=== PATIENT | female | born 1960 | race Caucasian/White ===

== ENCOUNTER 2017-08-27 13:33 | Emergency (ER) | payer BC ==
--- NOTE | 2017-08-27 13:40 | ER Document Report ---
HPI - HPI Patient complains to provider of: Cough and congestion Onset: Other - Over 3 weeks Pain Level: 2 Context: 57-year-old female woke her is complaining of cough for over 3 weeks it feels like the mucus gets stuck in her throat. The past 3 days she had increased sinus congestion and difficulty at night with her CPAP machine because of the nasal congestion. She has been borrowing a albuterol metered-dose her of her friend. She is a type II diabetic and her Accu-Chek was 300 last week, she does have metformin and farxiga but she uses it sparingly. She took it twice last week. She did not use it this week. No shortness of breath but she did have right sided brief (1-2 minutes) chest pain while in the waiting room. No history of coronary artery disease. No fever or chills. She did work this morning. Associated Symptoms: None Exacerbated by: Denies Relieved by: Denies - ROS ROS below otherwise negative: Yes Systems Reviewed and Negative: Yes All other systems reviewed and negative Past Medical History - General Information source: Patient - Social History Smoking Status: Current Every Day Smoker Frequency of alcohol use: None Drug Abuse: None Lives with: Family Family History: Reviewed & Not Pertinent - Past Medical History Cardiac Medical History: Denies: Hx Hypertension Pulmonary Medical History: Reports: Hx Asthma Endocrine Medical History: Reports: Hx Diabetes Mellitus Type 2 Surgical Hx: Negative Vertical Provider Document - CONSTITUTIONAL Agree With Documented VS: Yes - hypertension - INFECTION CONTROL TRAVEL OUTSIDE OF THE [place] IN LAST 30 DAYS: No - HEENT HEENT: Pharyngeal Erythema. negative: Conjuctival Injection, Tympanic Membrane Red - NECK Neck: Supple. negative: Lymphadenopathy-Left, Lymphadenopathy-Right - RESPIRATORY Respiratory: Rhonchi - coarse, changes with cough - CARDIOVASCULAR Cardiovascular: Regular Rate, Regular Rhythm - GI/ABDOMEN Gastrointestinal: Abdomen Soft, Abdomen Non-Tender, No Organomegaly - BACK Back: Normal Inspection - MUSCULOSKELETAL/EXTREMETIES Musculoskeletal/Extremeties: MAEW, Edema - bilateral lower legs-pt states it is chronic - NEURO Level of Consciousness: Awake - DERM Integumentary: Dry Course - Re-evaluation Re-evalutation: 08/27/17 14:47 Patient feels better after the nebulizer treatments. She is moving air much better in the lower lobes. There is faint expiratory wheeze bilateral. Pending chest x-ray. 08/27/17 14:55 Accu-Chek is 305., She does not have a doctor here so I will refer her to family practice doctor. 08/27/17 15:30 Will treat with antibiotics and she has uncontrolled diabetes and she has had this cough for 3 weeks although the chest x-ray is negative per radiologist. Discharge - Discharge Clinical Impression: Bronchitis Uncontrolled diabetes mellitus Qualifiers: Diabetes mellitus type: type 2 Diabetes mellitus skilled nursing insulin use: with ferry terminal agent use Diabetes mellitus complication status: without complication Qualified Code(s): E11.65 - Type 2 diabetes mellitus with hyperglycemia Condition: Good Disposition: HOME, SELF-CARE Instructions: Diabetes ([facility]), Bronchitis With Bronchospasm (Wheezing) ([facility]), Steroid Medication, Inhaled Bronchodilators ([facility]), Stop Smoking ([facility]), Glucophage ([facility]), Family Physicians / Practices, [facility] Additional Instructions: See family practice doctor for your routine care I will give you a list Restart the metformin 1000 mg twice a day in the [facility] daily I gave you a prescription for 1 month. Steroids for the inflammation of the bronchitis 2 puffs of the metered-dose inhaler every 3 hours for the cough Stop smoking azithromycin for bronchitis Return to the emergency room if symptoms worsen Prescriptions: Albuterol Sulfate [Proair HFA Inhalation Aerosol 8.5 gm MDI] 2 puff IH Q3HP PRN #1 hfa.aer.ad PRN Reason: Azithromycin [Zithromax] 250 mg PO DAILY #4 tablet Dapagliflozin Propanediol [Farxiga] 5 mg PO DAILY #30 tablet Metformin HCl 1,000 mg PO BID #60 tablet Prednisone [Deltasone 20 mg Tablet] 40 mg PO DAILY #8 tablet
[2017-08-27] MEDS ORDERED: IPRATROPIUM/ALBUTEROL 0.5-2.5 MG/3 ML AMPUL NEB ONE (13:51)
[2017-08-27] MEDS ORDERED: ALBUTEROL SULFATE 0.083% NEB 2.5 MG/3 ML AMPUL NEB ONE (13:54)
[2017-08-27] MEDS ORDERED: PREDNISONE 20 MG TABLET PO ONE (13:57)
--- NOTE | 2017-08-27 15:07 | RADIOLOGY REPORT (SQ) ---
EXAM DESCRIPTION: CHEST 2 VIEWS COMPLETED DATE/TIME: 08/27/2017 2:57 pm REASON FOR STUDY: cough wheeze smoker COMPARISON: None. EXAM PARAMETERS: NUMBER OF VIEWS: two views TECHNIQUE: Digital Frontal and Lateral radiographic views of the chest acquired. RADIATION DOSE: NA LIMITATIONS: none FINDINGS: LUNGS AND PLEURA: No opacities, masses or pneumothorax. No pleural effusion. MEDIASTINUM AND HILAR STRUCTURES: No masses or contour abnormalities. HEART AND VASCULAR STRUCTURES: Heart normal size. No evidence for failure. BONES: No acute findings. HARDWARE: None in the chest. OTHER: No other significant finding. IMPRESSION: NO ACUTE RADIOGRAPHIC FINDING IN THE CHEST. TECHNICAL DOCUMENTATION: JOB ID: [id number] [employer]- All Rights Reserved Reading location - IP/workstation name: [email or web address]
[2017-08-27] MEDS ORDERED: AZITHROMYCIN 250 MG TABLET PO ONE (15:31)
[2017-08-27 15:50] VITALS: BP 147/81
== END 2017-08-27 15:50 | disposition home or self-care (01) ==
LOC: ER 13:33
DX: J45.909 Unspecified asthma, uncomplicated (principal); E11.65 Type 2 diabetes mellitus with hyperglycemia; T38.3X6A Underdosing of insulin and oral hypoglycemic [antidiabetic] drugs, initial encounter; Z91.128 Patient's intentional underdosing of medication regimen for other reason; Z91.14 Patient's other noncompliance with medication regimen; R05 Cough; R09.81 Nasal congestion; R09.89 Other specified symptoms and signs involving the circulatory and respiratory systems; R07.9 Chest pain, unspecified; F17.200 Nicotine dependence, unspecified, uncomplicated; R60.0 Localized edema
CPT/HCPCS: 94640 ×2; 99284; 82962; 71046; J7512; J7620